=== PATIENT | male | born 1955 | race Caucasian/White ===

== ENCOUNTER → 2017-06-23 | Emergency (ER) | payer MEDICAID ==
[~2017-06-23] VITALS: Ht 170.2 cm; Wt 106.6 kg
[~2017-06-23] MED LIST: GUAIFENESIN AC473 ML PO; PERCOCET 5-3251 EACH PO; VALSARTAN40 MG PO
== END ==
LOC: ED 18:12
DX: J20.9 Acute bronchitis, unspecified (principal); I10 Essential (primary) hypertension; Z98.890 Other specified postprocedural states; Z88.0 Allergy status to penicillin; Z79.899 Other long term (current) drug therapy
CPT/HCPCS: 99282